=== PATIENT | female | born 2000 ===

== ENCOUNTER 2022-05-01 15:54 | Outpatient (CLI) | payer OTHER | END 2022-05-01 17:23 | disposition home or self-care (01) | LOC: PRENATAL 15:54 | PROVIDERS: ATTEND Obstetrics & Gynecology Maternal & Fetal Medicine | DX: O35.9XX0 Maternal care for (suspected) fetal abnormality and damage, unspecified, not applicable or unspecified (principal); O35.3XX0 Maternal care for (suspected) damage to fetus from viral disease in mother, not applicable or unspecified; Z3A.19 19 weeks gestation of pregnancy ==

== ENCOUNTER 2022-07-27 18:05 | Emergency (ER) | payer OTHER ==
[~2022-07-27] VITALS: Ht 162.6 cm; Wt 55.3 kg
[2022-07-27] MEDS ORDERED: AMOX1TAB5 PO (20:13)
== END 2022-07-27 20:26 | disposition home or self-care (01) ==
LOC: ER 18:05 → EMR PED 18:06 → ER 20:26
DX: O99.513 Diseases of the respiratory system complicating pregnancy, third trimester (principal); Z3A.32 32 weeks gestation of pregnancy; J03.90 Acute tonsillitis, unspecified; Z20.822 Contact with and (suspected) exposure to COVID-19